=== PATIENT | female | born 1990 | race Caucasian/White ===

== ENCOUNTER 2018-03-07 19:22 | Emergency (ER) | payer SELFPAY ==
[~2018-03-07] VITALS: Ht 165.1 cm; Wt 54.4 kg
[2018-03-07 19:29] VITALS: BP 130/73
[2018-03-07 19:33] VITALS: BP 130/73
== END 2018-03-07 20:30 | disposition left against medical advice (07) ==
LOC: MED 19:22
DX: F41.9 Anxiety disorder, unspecified (principal); Z53.21 Procedure and treatment not carried out due to patient leaving prior to being seen by health care provider